=== PATIENT | female | born 1955 | race Caucasian/White ===

== ENCOUNTER 2020-12-14 00:04 | Observation (INO) | payer MEDICARE, SELFPAY ==
[2020-12-13 22:47] VITALS: BP 116/58; PULSE 68; RESP 24; TEMP 36.7; O2SAT 95; BMI 28.3
--- NOTE | 2020-12-14 00:08 | PCM.HP.STD ---
HPI - General General Date of Admission: 12/13/20 Date of Service: 12/14/20 Chief Complaint: weakness. HPI Narrative ANDREW HAMILTON, is a 65 F who presents presents to outside hospital with feeling sick and weak for approximately 1 week. Patient tested positive for COVID-19. Patient was found to have pulse ox of 87%. The outside hospital did not have any beds available and [facility] was contacted for admission. Unclear if they attempted to send the patient out with oxygen directly from the emergency room or not. When she arrived, patient is noted to be 95% on room air at rest. Patient is unvaccinated. States that she does not know how she would have contracted COVID-19. [facility] Medical History Back pain Hypertension Liver cyst Home Medications atenolol [Tenormin] 25 mg PO LUNCH 12/13/20 [History Last Taken 12/12/20] baclofen 10 mg PO DAILY PRN 12/13/20 [History Last Taken Unknown] meloxicam 7.5 mg PO DAILY PRN 12/13/20 [History Last Taken Unknown] spironolacton-hydrochlorothiaz 3 tab PO LUNCH 12/13/20 [History Last Taken 12/12/20] Allergy/AdvReac Type Severity Reaction Status Date / Time narcotics AdvReac Itching Uncoded 12/13/20 22:59 Surgical History H/O section Hx of breast reduction, elective Social History Smoking Status: Never smoker ROS ROS Narrative Smell and taste are intact. Malaise. All review of systems were negative except as mentioned above in the history of present illness and the other review of systems. Vital Signs Vital Signs Vital Signs: 12/13/20 22:31 12/13/20 22:47 Temperature 36.7 C Temperature Source Oral Pulse Rate 68 Respiratory Rate 24 H Respiratory Effort Normal Non-Labored Respiratory Depth Normal Respiratory Pattern Normal Blood Pressure 116/58 L Blood Pressure Mean 77 Blood Pressure Source Monitor Blood Pressure Position Semi-Fowlers Blood Pressure Location Left Arm Pulse Ox 95 Oxygen Delivery Method Room Air Room Air Weight Weight: 65.771 kg Body Mass Index (BMI) 28.3 Physical Exam Const alert Constitutional Narrative: No respiratory distress. No conversational dyspnea. HEENT normocephalic Resp normal respiratory effort, no retractions, no use of accessory muscles and clear to auscultation bilaterally Cardio regular rate, regular rhythm, S1 normal heart sound and S2 normal heart sound GI normal to inspection, nondistended, normoactive bowel sounds, soft to palpation, non-tender and non-distended Extremity normal to inspection Neuro Sensorium / Orientation: awake and alert Assessment & Plan Assessment/Plan (1) COVID-19: PLAN: 1. Acute COVID-19 Onset was December 07. Since patient was noted to be hypoxic at the outside hospital, she would need to quarantine for 20 days through December 20. Really not hypoxic here so I would not be administering any remdesivir. Patient did receive dexamethasone at the outside hospital and I will continue that for total of 10 days. Check D-dimer and if elevated for age, check CTA of her chest. Could consider monoclonal antibody as outpatient. 2. Transient hypoxia Noted at outside hospital. Patient has very good waveforms at rest and she is measuring 95 to 96%. Will check an ambulatory pulse ox to see if she will require any oxygen 3. VTE prophylaxis: Moderate risk given her COVID-19. Enoxaparin. 4. Disposition: Dissipate patient be able to be discharged later on today after checking some lab work and as well as an ambulatory pulse ox. Charges/Coding Visit Charges OBSV E&M: 70935 Initial observation care L2
[2020-12-14 03:04] LABS: Absolute Lymphocyte Count 0.46 X10^3/uL (0.83-4.51); Absolute Neutrophil Count 2.7 X10^3/uL (2.0-7.7); Basophil# 0.01 X10^3/uL; Basophil% 0.3 % (0-1); Hemoglobin 14.9 g/dL (12.0-15.0); Lymphocyte # 0.46 X10^3/ul (0.83-4.51); Lymphocyte % 13.9 % (19-41); Mean Corp Hgb Conc 33.9 g/dL (32-36); Mean Corpuscular Hgb 30.9 pg (27.0-32.0); Mean Corpuscular Volume 91.3 fL (81-99); Mean Platelet Vol. 9.9 fl (6.2-12.0); Monocyte# 0.15 X10^3/uL; Monocyte% 4.5 % (0-10); NRBC Flagged by Analyzer 0 % (0-5); Neutrophil # 2.68 X10^3/uL (2.7-7.7); Neutrophil % 80.7 % (47-70); POSITIVE DIFFERENTIAL YES; Platelet Count 172 K/mm3 (150-450); RBC Distribution Width CV 12.5 % (11.6-14.6); RBC Distribution Width SD 42.2 fl (35.1-43.9); Red Blood Count 4.82 M/mm3 (4.2-5.4); White Blood Count 3.3 K/mm3 (4.4-11.0)
[2020-12-14 03:10] LABS: Differential Indicated SCAN CRITERIA MET
[2020-12-14 03:19] LABS: D-Dimer Quantitative (DVT/PE) 0.39 FEU/ug/m (0.27-0.49)
[2020-12-14 03:20] LABS: ALB/GLOB Ratio 0.6 RATIO (0.9-2.4); AST(SGOT) 39 U/L (15-37); Alanine Aminotransfer ALT/SGPT 28 U/L (13-56); Albumin, Serum 2.4 g/dL (3.2-5.0); Alkaline Phosphatase 113 U/L (45-117); Anion Gap 7 (5-15); BUN 14 mg/dL (7-18); Calcium,Total 7.7 mg/dL (8.5-10.1); Chloride 102 mmol/L (98-107); Creatinine, Serum 0.78 mg/dL (0.55-1.02); EST Glomerular Filtration Rate 79 mL/min (>60); Est Glom Filt Rate - Afr Amer 95 mL/min (>60); Estimated Creatinine Clearance 39.21 ml/min; Globulin 3.9 g/dL (2.2-4.2); Glucose 168 mg/dL (74-106); Potassium 3.4 mmol/L (3.5-5.1); Protein, Total 6.3 g/dL (6.4-8.2); Sodium Level 137 mmol/L (136-145)
[2020-12-14 03:36] LABS: Differential Comment SCANNED
--- NOTE | 2020-12-14 04:16 | PCS.PANDOC ---
PANDEMIC DOCUMENTATION INITIATED: Date: 09/24/2020 Time: 190
[2020-12-14 05:00] VITALS: BP 122/66; PULSE 63; RESP 16; TEMP 36.6; O2SAT 95
[2020-12-14 06:33] VITALS: O2SAT 93; O2SAT 96
[2020-12-14 10:21] VITALS: BP 119/68; PULSE 76; RESP 18; TEMP 36.6; O2SAT 95
[2020-12-14] MEDS: dexAMETHasone 4 MG Tablet 6 MG PO (10:34)
[2020-12-14] MEDS: Enoxaparin 40 MG/0.4 ML Syringe SC (10:34)
[2020-12-14] MEDS: Potassium Chloride Oral Tablet 20 MEQ 40 MEQ PO (10:34)
--- NOTE | 2020-12-14 12:26 | DS.PCM_ITS ---
Providers Date of Admission: 12/14/20 Primary Care Physician: Dr. Ivan Maynard MD Reason For Visit: COVID 19 Diagnosis Discharge Diagnosis (1) COVID-19: Status: Acute Code(s): U07.1 - COVID-19 Medications at Discharge Home Medications atenolol [Tenormin] 25 mg PO LUNCH 12/13/20 baclofen 10 mg PO DAILY PRN 12/13/20 meloxicam 7.5 mg PO DAILY PRN 12/13/20 spironolacton-hydrochlorothiaz 3 tab PO LUNCH 12/13/20 dexamethasone 6 mg PO DAILY #9 tab 12/14/20 Hospital Course Operations None Procedures None Summary of Care Provided Minutes Spent on Discharge: 45 Hospital Course: Patient is a 65 y/o female with a PMH as outlined who was admitted as a transfer from an outside hospital with a complaint of feeling sick and weak for one week prior to admission. She had tested positive for COVID 19 at an outside hospital and was found to be hypoxic as well, saturating at 87% on room air. She was transferred to [facility] because there were no beds at the outside hospital, and admitted to be managed for hypoxia due to COVID 19 infection. Paitent was weaned down to room air and felt fine. She remained stable and was discharged home on 12/14/2020. She didnt qualify for room air. She was discharged on PO decadron 6mg daily x 9 days, and was referred for the monoclonal antibody treatment. Patient seen and examined prior to discharge. She had no complaints and felt well. Review of systems otherwise negative. Labs and vitals reviewed. Home medication reviewed and reconciled. Physical Exam Const alert, oriented x3 and no apparent distress General Appearance: cooperative and comfortable Orientation / Consciousness: awake Exam Limitations: no limitations HEENT normocephalic, head/scalp atraumatic, hearing grossly normal bilaterally and moist oral mucous membranes Eyes PERRL, EOMs intact bilaterally and conjunctivae normal Neck no lymphadenopathy and supple Resp normal respiratory effort, no retractions, no use of accessory muscles and clear to auscultation bilaterally Cardio regular rate, regular rhythm, S1 normal heart sound, S2 normal heart sound and no murmurs GI normal to inspection, nondistended, normoactive bowel sounds, soft to palpation, non-tender and non-distended Extremity normal to inspection, full ROM and no clubbing, cyanosis or edema Skin no rashes or lesions noted Neuro oriented x3, CN's II-XII intact bilaterally and moves all extremities Sensorium / Orientation: awake Psych affect normal Weight / BMI Weight Weight: 145 lb Body Mass Index (BMI) 28.3 ABG / Lab / Microbiology Data Result Diagrams: 12/14/20 02:50 12/14/20 02:50 Laboratory: Laboratory Results - last 24 hr 12/14/20 02:50: D-Dimer Quant (PE/DVT) 0.39 12/14/20 02:50: WBC 3.3 L, RBC 4.82, Hgb 14.9, Hct 44.0, MCV 91.3, MCH 30.9, MCHC 33.9, RDW Std Deviation 42.2, RDW Coeff of Du 12.5, Plt Count 172, MPV 9.9, Immature Gran % (Auto) 0.600, Neut % (Auto) 80.7 H, Lymph % (Auto) 13.9 L, [place] % (Auto) 4.5, Eos % (Auto) 0.0, Baso % (Auto) 0.3, Absolute Neuts (auto) 2.7, Absolute Lymphs (auto) 0.46 L, Nucleated RBC % 0, Differential Comment SCANNED, Diff Path Review June12/14/20 02:50: Sodium 137, Potassium 3.4 L, Chloride 102, Carbon Dioxide 28.0, Anion Gap 7, BUN 14, Creatinine 0.78, Estim Creat Clear Calc 39.21, Est GFR (MDRD) Af Amer 95, Est GFR (MDRD) Non-Af 79, BUN/Creatinine Ratio 18.0, Glucose 168 H, Calcium 7.7 L, Total Bilirubin 0.30, AST 39 H, ALT 28, Alkaline Phosphatase 113, Total Protein 6.3 L, Albumin 2.4 L, Globulin 3.9, Albumin/Glob ulin Ratio 0.6 L D/C Instructions Discharge Diet: Low fat / Low cholesterol Discharge Activity: Return to Normal Activity Weight Bearing Status: Weight bearing as tolerated Call your doctor if you observe: Fever of 101 or Higher, Shortness of breath, Di zziness, Swelling in the ankles, Chest pain and Increased palpitations (irregular heartbeat) Meaningful Use Info Meaningful Use Diagnoses (Choose all that apply): None applicable Discharge Plan Admission Admit Date/Time: 12/14/20 00:04 Primary Reason for Your Visit: covid 19 infection Attending Provider: Jackie Rivera Primary Care Provider: Ivan Maynard Instructions Patient Instructions: Coronavirus Disease 2019 (COVID-19): Overview Additional Instructions / Restrictions: To remain in self-isolation till December 20, 2020. Referrred for monoclonal antibodies on outpatient basis. Discharge Orders/Prescriptions Prescriptions: New dexamethasone 6 mg tablet 6 mg PO DAILY Qty: 9 RF: 0 Continued spironolacton-hydrochlorothiaz 25-25 mg tablet 3 tab PO LUNCH RF: 0 atenolol [Tenormin] 25 mg Tablet 25 mg PO LUNCH RF: 0 meloxicam 7.5 mg Tablet 7.5 mg PO DAILY PRN (Reason: Back Pain) RF: 0 baclofen 10 mg Tablet 10 mg PO DAILY PRN (Reason: Back Pain) RF: 0 Referrals / Follow Up: Ivan Maynard MD [Primary Care Provider] - Within 2 Weeks Disposition Disposition (needs filled in before D/C Order can be placed): Home, Self Care Charges/Coding Visit Charges Inpatient E&M: 46046 Disch Hosp
[2020-12-14] MEDS: Spironolactone 25 MG Tablet 75 MG PO (13:15)
[2020-12-14] MEDS: Atenolol 25 MG Tablet PO (13:15)
[2020-12-14] MEDS: hydroCHLOROthiazide 25 MG Tablet 75 MG PO (13:15)
[2020-12-14 13:40] LABS: Pathologist Review Reviewed
--- NOTE | 2020-12-14 13:55 | CASEMGMT ---
YOANA GALEANA Assessment: Face to Face with pt for initial transition planning/care coordination assessment. RN KERVIN introduced self and role at [facility], pt voices understanding and consents to assessment. Pt is A/O x4 and answers all questions appropriately at this time. Pt lying in bed in no distress on RA. Care providers, pharmacy, and demographics verified/updated. Admitting Dx: COVID 19 PCP:Aleyda Specialists:Pt denies. Preferred Pharmacy: [facility] Insurance: [facility] Prescription Benefit: yes LW/HPOA: Pt denies having a LW/DPOA and denies need for info regarding AD. LNOK: Kwesi Palacios, Living Arrangements: Pt lives with and 16 year old granddtr in a tri level house with no steps to enter. Pt reports she is I in ADL's and denies concerns at home. Transportation: Pt drives self and denies concerns with transportation. DME/HHC/SNF: Pt denies having any DME, hx of HHC or SNF stays. Pt states she was first tested at [facility] for COVID. Pt states her granddtr is staying with her friend and her is not positive. She is able to quarantine from her by using separate bedrooms and bathrooms. Pt did not qualify for home O2. Pt states no concerns with going home at time of dc. Pt states no further concerns/needs. CM to follow. Advised pt to ask CM if any further question/concerns/needs arise, voices understanding. Pt Goal: Home Plan: Home
--- NOTE | 2020-12-14 14:51 | PHA.DC.MR ---
Pharmacy Service has performed discharge medication reconciliation for this patient. The patient's discharge medication list was reviewed for discrepancies and discrepancies were resolved. Attempted to call and addictions counselor assistant, no answer. Home Medications atenolol [Tenormin] 25 mg PO LUNCH 12/13/20 baclofen 10 mg PO DAILY PRN 12/13/20 meloxicam 7.5 mg PO DAILY PRN 12/13/20 spironolacton-hydrochlorothiaz 3 tab PO LUNCH 12/13/20 dexamethasone 6 mg PO DAILY #9 tab 12/14/20
--- NOTE | 2020-12-14 15:12 | NURSING ---
This RN spoke with Shreyas regarding the possibility of patient getting the monoclonal infusion today. He states we are in need of a positive test document prior to being able to set everything up and she will not get called until tomorrow for setting up a time for the infusion. Patient was made aware of same.
[2020-12-14 15:27] VITALS: BP 125/63; PULSE 70; RESP 16; TEMP 36.9; O2SAT 94
== END 2020-12-14 17:25 | disposition home or self-care (01) ==
PROVIDERS: Admitting Provider Family Medicine; PCP Family Medicine; Visit Provider Student in an Organized Health Care Education/Training Program
DX: U07.1 COVID-19 (principal); R09.02 Hypoxemia; I10 Essential (primary) hypertension; Z28.3 Underimmunization status; Z79.899 Other long term (current) drug therapy
CPT/HCPCS: 36415; 80053; 85025; 85379; 96372; 99218; G0378; G0379